=== PATIENT | female | born 1990 | race American Indian/Alaskan Native ===

== ENCOUNTER 2022-02-09 10:22 | Outpatient (CLI) | payer OTHER ==
--- NOTE | 2022-02-09 12:01 | CT Report ---
PROCEDURE: HEAD WO INDICATIONS: HEADACHE SYNDROME TECHNIQUE: Noncontrast 4.5 mm thick angled axial sections acquired from the foramen magnum to the vertex. For r adiation dose reduction, the following was used: automated exposure control, adjustment of mA and/or kV according to patient size. COMPARISON: None. FINDINGS: Image quality: There is streak artifact seen through the skull base. CSF spaces: Basal cisterns are patent. No extra-axial fluid collections. Ventricles are normal in size and shape. Brain: No midline shift. No intracranial masses or hemorrhage. Cespedes-white matter interface is norm al. Skull and face: Calvarium and visualized facial bones are intact, without suspicious lesions. Sinuses: Visualized sinuses and mastoids are clear. IMPRESSION: A cause of headache cannot be seen on these images. Reviewed by: Sohan Rose MD on 02/09/2022 10:59 AM [facility] Approved by: Sohan Rose MD on 02/09/2022 10:59 AM [facility] Station ID: [id number]
== END 2022-02-09 10:23 | disposition home or self-care (01) ==
LOC: DI 10:22
PROVIDERS: ATTEND Internal Medicine
DX: G44.89 Other headache syndrome (principal)

== ENCOUNTER 2022-05-07 09:02 | Outpatient (CLI) | payer OTHER ==
[2022-05-07] MEDS ORDERED: GADOBUTROL 7.5 MMOL/7.5 ML VIAL ONE (09:06)
--- NOTE | 2022-05-07 12:01 | MRI Report ---
PROCEDURE: LUMBAR SPINE W/WO INDICATIONS: LOW BACK PAIN CONTRAST: gadavist 7.5ml TECHNIQUE: Noncontrast sagittal T1 spin echo and T2 fast spin echo, sagittal STIR, axial T1 and T2 fast spin ech o through the lumbar spine. In cases with scoliosis, additional coronal T2 fast spin echo may be per formed. After the administration of contrast, sagittal and axial T1 spin echo with fat saturation th rough the lumbar spine. COMPARISON: None. FINDINGS: Image quality: Excellent. Alignment and curvature: There is minimal retrolisthesis seen at the L5-S1 level. Marrow: Marrow is of normal overall signal. No acute vertebral body compression fractures. No susp icious marrow enhancement. Spinal cord: Conus medullaris terminates at the L1 level. Visualized spinal cord demonstrates cristiana l signal, without suspicious enhancement. Paraspinous soft tissues: No paravertebral masses or abnormal enhancement. T12-L1: Normal in appearance. L1-L2: Normal in appearance. L2-L3: Normal in appearance. L3-L4: Normal in appearance. L4-L5: No significant abnormality is seen. L5-S1: The disc height is well-preserved. There is loss of disc signal seen. Mild to moderate disc bulge is seen. There is a superimposed central/right disc extrusion, with mild inferior migration of disc material, as on series 5 image 42 and on series 2 image 7. Associated mass effect is seen, inclu ding upon the transiting right S1 and S2 nerve roots. Moderate bilateral neuroforaminal narrowing can be seen at this level. Mild to moderate central canal narrowing is seen. IMPRESSION: There is a central/right disc extrusion seen at L5-S1, with associated regional mass effect. Reviewed by: Sohan Rose MD on 05/07/2022 11:00 AM [facility] Approved by: Sohan Rose MD on 05/07/2022 11:00 AM [facility] Station ID: [id number]
[2022-05-07] MEDS ORDERED: GADOBUTROL 7.5 MMOL/7.5 ML VIAL IVP ONE (16:21)
== END 2022-05-07 09:03 | disposition home or self-care (01) ==
LOC: DI 09:02
PROVIDERS: ATTEND Internal Medicine
DX: M51.17 Intervertebral disc disorders with radiculopathy, lumbosacral region (principal)
CPT/HCPCS: 72158; A9585

== ENCOUNTER 2022-06-29 13:47 | Emergency (ER) | payer OTHER ==
[2022-06-29 14:06] VITALS: BP 123/75
--- NOTE | 2022-06-29 14:25 | XRAY Report ---
PROCEDURE: Hand 3 View RT INDICATIONS: Trauma TECHNIQUE: 3 views of the hand(s) acquired. COMPARISON: None FINDINGS: Bones: No fractures or dislocations. No suspicious bony lesions. Soft tissues: No suspicious soft tissue calcifications. IMPRESSION: No gross acute right hand fracture or dislocation. No gross soft tissue abnormalities. Reviewed by: Michael Granados MD on 06/29/2022 2:24 PM PST Approved by: Michael Granados MD on 06/29/2022 2:24 PM [facility] Station ID: [id number]
[2022-06-29] MEDS ORDERED: HYDROcod/ACETAM 5/325 MG TABLET PO STA (15:16)
--- NOTE | 2022-06-29 15:21 | ED Physician Documentation ---
PD HPI UPPER EXT INJURY - Stated complaint Stated Complaint: RT HAND INJ - Chief complaint Chief Complaint: Trauma Ext - History obtained from History obtained from: Patient - History of Present Illness Location: Right, Hand Pain level max: 8 Pain level now: 6 Improved by: Rest, Ice, Immobilization Worsened by: Moving, Palpating Associated symptoms: Swelling. No: Weakness, Numbness, Tingling Contributing factors: No: Anticoagulated, Prior ortho surgery - Additonal information Additional information: Patient is a 32-year-old female who presents to the emergency department after her right hand was injured by a foot while she was spotting a teenage gymnast today. She complains of pain to the right finger and dorsum of the right hand. Worse with movement, better with rest. No numbness or tingling. She does have pain in the hand with movement. Patient is right-handed Review of Systems Constitutional: denies: Fever : denies: Now [facility] PD PAST MEDICAL HISTORY - Past Medical History Past Medical History: No - Past Surgical History Past Surgical History: No - Present Medications Home Medications: Ambulatory Orders Medication Instructions Recorded Confirmed HYDROcod/ACETAM 5/325 [[place] 5/325] 1 - 2 ea PO Q6H PRN #10 tablet 06/29/22 - Allergies Allergies/Adverse Reactions: Allergies Allergy/AdvReac Type Severity Reaction Status Date / Time amoxicillin [From Augmentin] Allergy Rash Verified 06/29/22 13:58 clavulanic acid Allergy Rash Verified 06/29/22 13:58 [From Augmentin] diclofenac Allergy Rash Verified 06/29/22 13:58 ketamine Allergy Anaphylaxis Verified 06/29/22 13:58 Latex, Natural Rubber Allergy Rash Verified 06/29/22 13:58 Penicillins Allergy Rash Verified 06/29/22 13:58 sulfamethoxazole Allergy Rash Verified 06/29/22 13:58 [From Bactrim] trimethoprim [From Bactrim] Allergy Rash Verified 06/29/22 13:58 - Living Situation Living Arrangement: reports: At home PD ED PE NORMAL - Vitals Vital signs reviewed: Yes - General General: Alert and oriented X 3, No acute distress - Derm Derm: Warm and dry - Extremities Extremities: Other - Neuro Neuro: Alert and oriented X 3 - Free text exam Free text exam: R hand - Tender to palpation over the dorsum of the right index finger and right second MCP. Mild swelling over the dorsum of the hand. No snuffbox tenderness. No pain with range of motion of the wrist. Otherwise normal examination of the hand. Limited range of motion of the right index finger secondary to pain. Results - Vitals Vitals: Vital Signs - 24 hr 06/29/22 13:58 Temperature 36.5 C Heart Rate 96 Respiratory 16 Rate Blood Pressure 123/75 O2 Saturation 99 Oxygen O2 Source Room air PD Medical Decision Making - ED course Complexity details: reviewed results, considered differential, d/w patient ED course: Patient with a right index finger sprain and hand contusion. No acute findings on x-ray of the right hand. Placed in a foam finger splint for comfort. Pain well controlled. Patient counseled regarding signs and symptoms for which I believe and urgent re-evaluation would be necessary. Patient with good understanding of and agreement to plan and is comfortable going home at this time This document was made in part using voice recognition software. While efforts are made to proofread this document, sound alike and grammatical errors may occur. Departure - Departure Disposition: 01 Home, Self Care Clinical Impression: Finger sprain Qualifiers: Encounter type: initial encounter Finger: index finger Sprain of finger site: unspecified site Laterality: right Qualified Code(s): S63.610A - Unspecified sprain of right index finger, initial encounter Hand contusion Qualifiers: Encounter type: initial encounter Laterality: right Qualified Code(s): S60.221A - Contusion of right hand, initial encounter Condition: Good Instructions: ED Sprain Hand, ED Sprain Finger Follow-Up: Kimberly Fishman MD [Primary Care Provider] - Within 1 week Prescriptions: HYDROcod/ACETAM 5/325 [[place] 5/325] 1 - 2 ea PO Q6H PRN #10 tablet PRN Reason: Pain Comments: Please follow up with your doctor for further care. Return if you worsen. Wear the splint as needed for pain. Your x-ray does not show any acute abnormalities today. Your prescription was sent to [facility] in [place].
== END 2022-06-29 15:36 | disposition home or self-care (01) ==
LOC: ED 13:47
DX: S63.610A Unspecified sprain of right index finger, initial encounter (principal); S60.221A Contusion of right hand, initial encounter; W50.0XXA Accidental hit or strike by another person, initial encounter; Y93.43 Activity, gymnastics
CPT/HCPCS: 73130; 99283; 99284; A9270

== ENCOUNTER 2023-04-12 17:27 | Outpatient (CLI) | payer OTHER | END 2023-04-12 17:28 | disposition home or self-care (01) | LOC: LAB 17:27 | PROVIDERS: ATTEND Obstetrics & Gynecology | DX: O20.9 Hemorrhage in early pregnancy, unspecified (principal) | CPT/HCPCS: 36415; 84702 ==

== ENCOUNTER 2023-04-14 08:00 | Outpatient (CLI) | payer OTHER ==
[2023-04-14 16:07] LABS: BILIRUBIN,URINE NEGATIVE (NEGATIVE); GLUCOSE, URINE (UA) NEGATIVE (NEGATIVE); KETONES,URINE (UA) NEGATIVE (NEGATIVE); LEUKOCYTE ESTERASE, URINE NEGATIVE (NEGATIVE); NITRITE,URINE NEGATIVE (NEGATIVE); OCCULT BLOOD,URINE NEGATIVE (NEGATIVE); PROTEIN,URINE NEGATIVE (NEGATIVE); UROBILINOGEN,URINE 0.2 (NORMAL) E.U./dL (NORMAL)
[2023-04-14 16:29] LABS: CLARITY,URINE CLEAR (CLEAR); WBC,URINE 0-3 /HPF (0-5)
[2023-04-14 16:30] LABS: BACTERIA,URINE Rare /HPF (None Seen); RBC,URINE None Seen /HPF (0-5); SQUAMOUS EPITHELIAL CELL,UR RARE Squamous (<= Few)
== END 2023-04-14 23:59 | disposition home or self-care (01) ==
LOC: LAB.WC 08:00
PROVIDERS: ATTEND Nurse Practitioner
DX: Z34.80 Encounter for supervision of other normal pregnancy, unspecified trimester (principal)
CPT/HCPCS: 81001; 87086

== ENCOUNTER 2023-04-14 10:42 | Outpatient (CLI) | payer OTHER ==
[2023-04-14 11:01] LABS: BASOPHILS % (AUTO) 0.4 %; EOSINOPHILS # (AUTO) 0.1 10^3/uL (0.0-0.7); EOSINOPHILS % (AUTO) 1.6 %; HCT - HEMATOCRIT 39.6 % (37.0-47.0); HGB - HEMOGLOBIN 13.3 g/dL (12.0-16.0); LYMPHOCYTES # (AUTO) 1.3 10^3/uL (1.5-3.5); LYMPHOCYTES % (AUTO) 25.5 %; MEAN CORPUSCULAR HEMOGLOBIN 29.8 pg (27.0-31.0); MEAN CORPUSCULAR HGB CONC 33.6 g/dL (32.0-36.0); MEAN CORPUSCULAR VOLUME 88.6 fL (81.0-99.0); MEAN PLATELET VOLUME 10.7 fL (7.9-10.8); MONOCYTES # (AUTO) 0.3 10^3/uL (0.0-1.0); MONOCYTES % (AUTO) 5.2 %; NEUTROPHILS # (AUTO) 3.4 10^3/uL (1.5-6.6); NEUTROPHILS % (AUTO) 66.9 %; PLT - PLATELET COUNT 201 10^3/uL (130-450); RED BLOOD COUNT 4.47 10^6/uL (4.20-5.40); RED CELL DISTRIBUTION WIDTH 12.7 % (12.0-15.0)
[2023-04-14 11:32] LABS: THYROID STIMULATING HORMONE 3.02 uIU/mL (0.34-5.60)
[2023-04-15 03:09] LABS: HIV SCREEN 4TH GENERATION Non Reactive (Non Reactive)
[2023-04-15 06:10] LABS: HCV AB Non Reactive (Non Reactive)
[2023-04-15 08:10] LABS: HBsAG SCREEN Negative (Negative)
[2023-04-15 11:10] LABS: VARICELLA-ZOSTER AB IGG 395 index (Immune >165)
[2023-04-16 03:10] LABS: RPR Non Reactive (Non Reactive)
== END 2023-04-14 10:43 | disposition home or self-care (01) ==
LOC: LAB 10:42
PROVIDERS: ATTEND Obstetrics & Gynecology
DX: O20.9 Hemorrhage in early pregnancy, unspecified (principal); Z36.89 Encounter for other specified antenatal screening; O99.280 Endocrine, nutritional and metabolic diseases complicating pregnancy, unspecified trimester; E06.3 Autoimmune thyroiditis
CPT/HCPCS: 36415; 81001; 84443; 84702; 85025; 86592; 86762; 86787; 86803; 86850; 86900; 86901; 87086; 87340; 87389

== ENCOUNTER 2023-04-21 07:08 | Outpatient (CLI) | payer OTHER ==
--- NOTE | 2023-04-21 10:54 | Ultrasound Report ---
PROCEDURE: OB First Trimester INDICATIONS: POSITIVE TEST OUTSIDE/PRIOR DATING DATA: Last menstrual period (LMP): 02/25/2023. LMP-based estimated date of delivery (YANELY): 12/02/2023. First dating scan (date and location): 04/21/2023. Estimated date of delivery (AYNELY) from first dating scan: 12/12/2023. TECHNIQUE: Real-time scanning was performed of the fetus and maternal pelvic organs, with image documentation. COMPARISON: None. FINDINGS: Intrauterine gestational sac present. Embryo: [place]-rump length measuring 0.6 cm, gestational age 6 weeks 3 days Heart rate: 127 bpm. A yolk sac is seen. Other: Small perigestational fluid collection measuring 2.3 x 1.5 x 1.5. Estimated volume of 3 cc. Ri ght corpus luteum. Measurement variability in dating: +/- 4 weeks by LMP, +/- 7 days by mean sac diameter (use before 6 weeks gestation if crown-rump length not able to be measured), +/- 5 days by crown-rump length (6-12 weeks gestation). Maternal organs: Ovaries appear within normal limits. IMPRESSION: 1. [place] living intrauterine at 6 weeks 3 days based on today's crown-rump length. 2. Small perigestational hemorrhage. Reviewed by: Jovan Zuleta MD on 04/21/2023 10:53 AM PST Approved by: Jovan Zuleta MD on 04/21/2023 10:53 AM PST Station ID: [id number]
== END 2023-04-21 07:09 | disposition home or self-care (01) ==
LOC: DI 07:08
PROVIDERS: ATTEND Nurse Practitioner
DX: O20.9 Hemorrhage in early pregnancy, unspecified (principal); Z3A.01 Less than 8 weeks gestation of pregnancy

== ENCOUNTER 2023-05-12 16:34 | Outpatient (CLI) | payer OTHER ==
[2023-05-12 16:52] LABS: HGB - HEMOGLOBIN 12.4 g/dL (12.0-16.0); MEAN CORPUSCULAR HEMOGLOBIN 30.4 pg (27.0-31.0); MEAN CORPUSCULAR HGB CONC 32.6 g/dL (32.0-36.0); MEAN CORPUSCULAR VOLUME 93.1 fL (81.0-99.0); MEAN PLATELET VOLUME 10.5 fL (7.9-10.8); RED BLOOD COUNT 4.08 10^6/uL (4.20-5.40); RED CELL DISTRIBUTION WIDTH 13.2 % (12.0-15.0)
== END 2023-05-12 16:35 | disposition home or self-care (01) ==
LOC: LAB 16:34
PROVIDERS: ATTEND Nurse Practitioner
DX: N93.9 Abnormal uterine and vaginal bleeding, unspecified (principal)
CPT/HCPCS: 36415; 84702; 85027

== ENCOUNTER 2023-05-14 15:33 | Outpatient (CLI) | payer OTHER | END 2023-05-14 15:34 | disposition home or self-care (01) | LOC: LAB 15:33 | PROVIDERS: ATTEND Nurse Practitioner | DX: N93.9 Abnormal uterine and vaginal bleeding, unspecified (principal) | CPT/HCPCS: 36415; 84702 ==

== ENCOUNTER 2023-09-02 18:34 | Emergency (ER) | payer OTHER ==
[2023-09-02 18:40] VITALS: BP 128/75; O2SAT 100
--- NOTE | 2023-09-02 19:10 | ED Physician Documentation ---
PD HPI HEENT - Stated complaint Stated Complaint: R EYE PX - Chief complaint Chief Complaint: Heent - History obtained from History obtained from: Patient - Additional information Additional information: She has history of RA, Emily's and fibromyalgia. Starting yesterday she developed sore throat and right eye redness. Kids recently had pinkeye. No fevers. PD PAST MEDICAL HISTORY - Past Medical History Past Medical History: Yes Endocrine/Autoimmune: Other Psych: Depression, Anxiety - Past Surgical History Past Surgical History: No - Present Medications Home Medications: Ambulatory Orders Medication Instructions Recorded Confirmed HYDROcod/ACETAM 5/325 [[place] 5/325] 1 - 2 ea PO Q6H PRN #10 tablet 06/29/22 predniSONE [Deltasone] 60 mg PO DAILY 5 Days #15 tablet 09/02/23 - Allergies Allergies/Adverse Reactions: Allergies Allergy/AdvReac Type Severity Reaction Status Date / Time amoxicillin [From Augmentin] Allergy Rash Verified 09/02/23 18:36 clavulanic acid Allergy Rash Verified 09/02/23 18:36 [From Augmentin] diclofenac Allergy Rash Verified 09/02/23 18:36 ketamine Allergy Anaphylaxis Verified 09/02/23 18:36 Latex, Natural Rubber Allergy Rash Verified 09/02/23 18:36 Penicillins Allergy Rash Verified 09/02/23 18:36 sulfamethoxazole Allergy Rash Verified 09/02/23 18:36 [From Bactrim] trimethoprim [From Bactrim] Allergy Rash Verified 09/02/23 18:36 - Social History Does the pt smoke?: No Smoking Status: Never smoker Does the pt drink ETOH?: No Does the pt have substance abuse?: No - Immunizations Immunizations are current?: Yes - POLST Patient has POLST: No PD ED PE NORMAL - Vitals Vital signs reviewed: Yes - General General: Alert and oriented X 3, No acute distress - HEENT HEENT: Other (Right eye viral appearing conjunctivitis, no drainage, oropharynx slightly red, phonation normal.) - Neck Neck: Supple, no meningeal sign, No bony TTP - Cardiac Cardiac: RRR, No murmur - Respiratory Respiratory: No respiratory distress Results - Vitals Vitals: Vital Signs - 24 hr 09/02/23 18:36 Temperature 36.7 C Heart Rate 100 Respiratory 16 Rate Blood Pressure 128/75 O2 Saturation 100 Oxygen O2 Source Room air PD Medical Decision Making - ED course ED course: 33-year-old woman with viral conjunctivitis and URI. Treated with prednisone and NSAIDs. No evidence of bacterial infection. Departure - Departure Disposition: 01 Home, Self Care Clinical Impression: Viral syndrome, Viral conjunctivitis, right eye Condition: Good Record reviewed to determine appropriate education?: Yes Instructions: ED Viral Syndrome Prescriptions: predniSONE [Deltasone] 60 mg PO DAILY 5 Days #15 tablet Comments: The combination of sore throat and viral appearing conjunctivitis would suggest a viral cause, adenovirus is a common cause of this. There is no specific cure, it will get better but will need several days to maybe a week. Am prescribing steroids to to help and you can also gargle 20 mL of children's ibuprofen every 6 hours for the throat pain. Return if worse.
[2023-09-02] MEDS: predniSONE 20 MG TABLET PO STA (19:22)
[2023-09-02] MEDS: IBUPROFEN 200 MG/10 ML UDC PO STA (19:22)
== END 2023-09-02 19:31 | disposition home or self-care (01) ==
LOC: ED 18:34
DX: B30.9 Viral conjunctivitis, unspecified (principal); J06.9 Acute upper respiratory infection, unspecified
CPT/HCPCS: 99282; 99283; A9270; J7512

== ENCOUNTER 2023-10-26 17:43 | Emergency (ER) | payer OTHER ==
[2023-10-26 18:06] VITALS: BP 125/85; O2SAT 100
--- NOTE | 2023-10-26 19:03 | ED Physician Documentation ---
History of Present Illness - Stated complaint Stated Complaint: RASH/SWELLING ON BODY - Chief complaint Chief Complaint: General - History obtained from History obtained from: Patient - History of Present Illness Timing: Yesterday Pain level max: 7 Pain level now: 5 - Additonal information Additional information: 33-year-old female presents to the emergency department stating that she has multiple complaints. 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 She states that she feels like her left clavicle is "out". She also states that it feels like her right hip/right SI joint is "out". She denies any injury to either of these areas. No falls. No trauma. She states that the left clavicle started hurting after she was stretching her arm. No swelling. No numbness or tingling. No bruising. Has been hurting for a few days. She states she also has a body wide rash that started when her 2 daughters began having a rash. She states that it is mildly itchy. Does not recall any new soaps, detergents, medications. The entire family has been sick with what sounds like a viral URI, mild rhinorrhea, cough and congestion. The cough is mostly dry. Denies any possibility of . Review of Systems Constitutional: denies: Fever, Chills GI: denies: Vomiting, Diarrhea Skin: reports: Rash (She states that there is a body wide rash.) Musculoskeletal: denies: Neck pain, Back pain Neurologic: denies: Headache PD PAST MEDICAL HISTORY - Past Medical History Past Medical History: Yes Endocrine/Autoimmune: Other Psych: Depression, Anxiety, Bipolar disorder Other Past Medical History: Hashimotos - Past Surgical History Past Surgical History: No - Present Medications Home Medications: Ambulatory Orders Medication Instructions Recorded Confirmed HYDROcod/ACETAM 5/325 [[place] 5/325] 1 - 2 ea PO Q6H PRN #10 tablet 06/29/22 predniSONE [Deltasone] 60 mg PO DAILY 5 Days #15 tablet 09/02/23 HYDROcod/ACETAM 5/325 [[place] 5/325] 1 - 2 ea PO Q6H PRN #14 tablet 10/26/23 - Allergies Allergies/Adverse Reactions: Allergies Allergy/AdvReac Type Severity Reaction Status Date / Time amoxicillin [From Augmentin] Allergy Rash Verified 10/26/23 18:05 clavulanic acid Allergy Rash Verified 10/26/23 18:05 [From Augmentin] diclofenac Allergy Rash Verified 10/26/23 18:05 ketamine Allergy Anaphylaxis Verified 10/26/23 18:05 Latex, Natural Rubber Allergy Rash Verified 10/26/23 18:05 Penicillins Allergy Rash Verified 10/26/23 18:05 sulfamethoxazole Allergy Rash Verified 10/26/23 18:05 [From Bactrim] trimethoprim [From Bactrim] Allergy Rash Verified 10/26/23 18:05 - Social History Does the pt smoke?: No Smoking Status: Never smoker Does the pt drink ETOH?: No Does the pt have substance abuse?: No - Immunizations Immunizations are current?: Yes - POLST Patient has POLST: No PD ED PE NORMAL - Vitals Vital signs reviewed: Yes - General General: Alert and oriented X 3, No acute distress, Well developed/nourished - HEENT HEENT: PERRL, Ears normal, Moist mucous membranes, Pharynx benign - Neck Neck: Supple, no meningeal sign, No adenopathy - Cardiac Cardiac: RRR - Respiratory Respiratory: No respiratory distress, Clear bilaterally - Abdomen Abdomen: Normal bowel sounds, Soft, Non tender, Non distended - Back Back: No spinal TTP - Derm Derm: Warm and dry, Other (Mild maculopapular exanthem across the 4 extremities, trunk. Blanches easily. No vesicles or pustules) - Extremities Extremities: Other (Mild tenderness over the left AC joint. There is no deformity. Neurovascular intact including the axillary nerve. She also has some tenderness at the right SI joint. There is no pain over the actual hip itself. No pain with internal/external rotation. There is no pain with rotation of the left) - Neuro Neuro: Alert and oriented X 3 - Psych Psych: Normal mood, Normal affect Results - Vitals Vitals: Vital Signs - 24 hr 10/26/23 10/26/23 17:55 19:29 Temperature 36.9 C 36.9 C Heart Rate 104 H 100 Respiratory 16 16 Rate Blood Pressure 125/85 H 125/85 H O2 Saturation 100 100 Oxygen O2 Source Room air PD Medical Decision Making - ED course Complexity details: considered differential, d/w patient ED course: 33-year-old female with left clavicle pain, right SI pain and a body wide rash that her daughters have as well. Unclear etiology of the rash, given dexamethasone here. They have all been sick with a viral syndrome, possible viral exanthem? No evidence of pustules, vesicles, vasculitis. No indication for x-ray of the hip or clavicle. Patient is driving, therefore was given Toradol here. We will prescribe hydrocodone for home and see how she progresses over the next few days. Patient states that she has taken Toradol in the past without problem. Ambulating well. No limp. Neurovascular intact. No evidence of meningitis, sepsis. Patient counseled regarding signs and symptoms for which I believe and urgent re-evaluation would be necessary. Patient with good understanding of and agreement to plan and is comfortable going home at this time This document was made in part using voice recognition software. While efforts are made to proofread this document, sound alike and grammatical errors may occur. Departure - Departure Disposition: 01 Home, Self Care Clinical Impression: Viral exanthem, Sacroiliitis Sprain of left acromioclavicular joint Qualifiers: Encounter type: initial encounter Qualified Code(s): S43.52XA - Sprain of left acromioclavicular joint, initial encounter Condition: Good Instructions: ED Exanthem Viral Rash Ch Follow-Up: DARYL CUEVAS ARNP [Primary Care Provider] - Within 1 week Prescriptions: HYDROcod/ACETAM 5/325 [[place] 5/325] 1 - 2 ea PO Q6H PRN #14 tablet PRN Reason: Pain Comments: Your prescriptions were sent to [facility] in [place]. Please follow-up with your doctor for further care. Please return if you worsen. I am prescribing a short course of narcotic pain medication for you. These are potentially dangerous and addictive medications that should be used carefully. These medications may constipate you. Take an [id number] stool softener (docusate) twice daily with plenty of water while taking these medications. If you go 24 hours without a bowel movement, take [id number] miralax, per package instructions. Do not drink or drive while taking these medications. If you received narcotic or sedating medications while in the emergency department, do not drive for 24 hours. Store this medication in a safe, secure place and out of reach of children. It is a violation of federal law to give or sell this medication to another person or to use in a manner other than prescribed. The ED will not refill narcotic prescriptions, including prescriptions lost or stolen. To dispose of unwanted medications: 1. [facility] [address] in [place] has a medication drop box. They accept prescription medications (in pill form) Friday through Friday 9:00 a.m. to 5:00 p.m. 2. The [facility] accepts prescription medications (in pill form only) for disposal year round. Call for more information. 3. Contact the [facility] for the next [facility] sponsored prescription drug collection event. , [phone], or [phone]; Forms: PCP List Discharge Date/Time: 10/26/23 19:33
[2023-10-26] MEDS: KETOROLAC 60 MG/2 ML VIAL IM STA (19:08)
[2023-10-26] MEDS: DEXAMETHASONE 10 MG/ML VIAL PO STA (19:13)
== END 2023-10-26 19:33 | disposition home or self-care (01) ==
LOC: ED 17:43
DX: B09 Unspecified viral infection characterized by skin and mucous membrane lesions (principal); M46.1 Sacroiliitis, not elsewhere classified; S43.52XA Sprain of left acromioclavicular joint, initial encounter; X50.9XXA Other and unspecified overexertion or strenuous movements or postures, initial encounter; Y93.B9 Activity, other involving muscle strengthening exercises
CPT/HCPCS: 96372; 99283

== ENCOUNTER 2024-03-04 11:30 | Outpatient (CLI) | payer OTHER ==
--- NOTE | 2024-03-05 13:32 | XRAY Report ---
PROCEDURE: Elbow 1-2V RT INDICATIONS: ELBOW PAIN, RIGHT TECHNIQUE: 3 views of the elbow were acquired. COMPARISON: None FINDINGS: Bones: No fractures or dislocations. No suspicious bony lesions. Soft tissues: No elbow joint effusion. No suspicious soft tissue calcifications. IMPRESSION: Unremarkable elbow radiographs Reviewed by: Jose Layne MD on 03/05/2024 12:31 PM [facility] Approved by: Jose Layne MD on 03/05/2024 12:31 PM [facility] Station ID: [id number]
== END 2024-03-04 11:45 | disposition home or self-care (01) ==
LOC: DI.N 11:30
PROVIDERS: ATTEND Physician Assistant Medical
DX: M25.521 Pain in right elbow (principal)